=== PATIENT | male | born 1990 | race Caucasian/White ===

== ENCOUNTER → 2016-11-26 | Outpatient (CLI) | payer OTHER ==
[~2016-11-26] MED LIST: GADAVIST IV PRN
--- NOTE | 2016-11-26 23:41 | DIAGNOSTIC IMAGING REPORT ---
BRAIN COMBO FOR IAC HISTORY: 26 years-old Male LIGHT HEADEDNESS, VERTIGO acute dizziness and vertigo for 6 months. No reported trauma or hearing loss COMPARISON: None available TECHNIQUE: Multiplanar multisequence MRI of the brain was obtained both with and without the use of 7 mL Gadavist utilizing internal auditory canal institutional protocol with thin section images of the posterior fossa. FINDINGS: No restricted diffusion to suggest acute ischemia. Midline structures including the corpus callosum, brainstem, optic chiasm, pituitary and pineal glands are unremarkable. No cerebellar tonsillar herniation. The imaged cervical spine is unremarkable. No acute intracranial hemorrhage, midline shift, hydrocephalus, abnormal extra-axial collections or intracranial mass identified. Bilateral 7th and 8th cranial nerves appear normal. No cerebellar pontine angle mass. Cisternal portions of the bilateral 5th cranial nerves are also within normal limits. No abnormal intra-axial or extra-axial enhancement. Bilateral internal auditory canals appear to be within normal limits. Major flow voids at the level of the skull base appear patent. Mastoid air cells and paranasal sinuses appear clear. Calvarium and scalp soft tissues are unremarkable. IMPRESSION: 1. No acute intracranial abnormality. 2. Normal course of the bilateral 7th and 8th cranial nerves without abnormal enhancement or focal mass. No cerebellar pontine angle mass. The above report was generated using voice recognition software. It may contain grammatical, syntax or spelling errors. Electronically signed by: Anderson Ceron M.D. 11/26/2016 11:40 PM Dictated Date/Time: 11/26/2016 11:33 PM
== END | disposition home or self-care (01) ==
LOC: C.MRI 20:43
PROVIDERS: ATTEND Psychiatry & Neurology Neurology
DX: R42 Dizziness and giddiness (principal)

== ENCOUNTER → 2016-11-29 | Outpatient (CLI) | payer OTHER ==
--- NOTE | 2016-11-30 13:26 | EEG Procedure Note ---
EEG Procedure Note Date of Service Nov 29, 2016. Start / End Times Start Time: 14:38 PM End Time: 14:59 PM Referring Physician Ellen Orosco History This is a 26-year-old male with episodes of dizziness. EEG for further evaluation of possible seizure etiology. Description This is a 21 electrode EEG with a single channel dedicated to limited EKG. The electrodes were placed in accordance with the International 10-20 system. At the start of the recording the patient was in an awake state. Background was well organized and composed of symmetric mixed alpha and beta frequencies. There was a symmetric well-formed moderate amplitude 11-12 Hz posterior dominant rhythm that was reactive to eye opening and closure. Hyperventilation was not done. Intermittent photic stimulation at various frequencies produced no abnormalities. Sleep was indicated by vertex waves and symmetric sleep spindles Interpretation This is a normal awake and asleep routine EEG. There was no electrographic seizures or epileptiform discharges. Clinical Correlation A normal EEG does not rule out epilepsy if there is a strong clinical suspicion.
== END | disposition home or self-care (01) ==
LOC: C.NEUR 14:27
PROVIDERS: ATTEND Psychiatry & Neurology Neurology
DX: R42 Dizziness and giddiness (principal)